=== PATIENT | male | born 1950 | race Caucasian/White ===

== ENCOUNTER → 2017-10-24 | Outpatient (CLI) | payer MEDICARE, OTHER | LOC: LAB EV 09:43 → LAB SHORT 09:43 | DX: B37.0 Candidal stomatitis (principal) | CPT/HCPCS: 87070; 87529 ==

== ENCOUNTER 2018-12-23 05:50 | Day surgery (SDC) | payer MEDICARE, BC ==
[~2018-12-23] VITALS: Ht 172.7 cm; Wt 82.0 kg
[~2018-12-23 05:50] MED LIST: SILD25T PO
--- NOTE | 2018-12-23 07:23 | NUR ---
"DAY SURGERY RN | TO OR REPORT TO STEVE SHEPPARD. BOTH DOCTORS AND SAFETY SCIENTIST HAVE SEEN. TO OR."
--- NOTE | 2018-12-23 12:14 | NUR ---
Patient up to Ambulate independently. Gait steady. Discharge instructions reviewed with patient. Patient verbalizes understanding. Copy given to patient to take home. Discharged via wheelchair to private car for ride home WITH SPOUSE
== END 2018-12-23 23:16 | disposition home or self-care (01) ==
LOC: ORSCMMR 05:50 → ORD 07:30 → ORSCMMR 23:16
PROVIDERS: Surgery
PROC: 8E0W4CZ Robotic Assisted Procedure of Trunk Region, Percutaneous Endoscopic Approach (ICD-10-PCS; principal; 2018-12-23 07:30)
PROC: 0YUA4JZ Supplement Bilateral Inguinal Region with Synthetic Substitute, Percutaneous Endoscopic Approach (ICD-10-PCS; principal; 2018-12-23 07:30)
DX: K40.20 Bilateral inguinal hernia, without obstruction or gangrene, not specified as recurrent (principal)
CPT/HCPCS: 49650; S2900; A9270-GY; C1781; J0690; J2405; J2704; J3010; J7120

== ENCOUNTER 2021-05-22 07:45 | Day surgery (SDC) | payer MEDICARE, BC ==
[~2021-05-22] VITALS: Ht 172.7 cm; Wt 87.2 kg
--- NOTE | 2021-05-22 08:59 | NUR ---
Ambulatory in Day Surgery History, Chart, Medications and Allergies reviewed before start of procedure.Patient confirms NPO status and agrees with scheduled surgery. Patient states colon prep results clear.Lungs clear T/O to Auscultation. Patient States Post-Procedure ride home has been arranged WITH
--- NOTE | 2021-05-22 09:33 | NUR ---
05/22/21 0933 Ingrid Branham History, Chart, Medications and Allergies reviewed before start of procedure. Patient confirms NPO status and agrees with scheduled surgery. 3-LEAD EKG REVIEWED WITH PHYSICIAN PRIOR TO START OF PROCEDURE. MONITOR INTACT WITH CONTINUOUS PULSE OXIMETRY AND INTERMITTENT BP. PATIENT DETERMINED TO BE ASA APPROPRIATE FOR PROPOFOL SEDATION PRIOR TO START OF PROCEDURE BY .
--- NOTE | 2021-05-22 10:43 | NUR ---
Patient up to Ambulate independently. Gait steady. Discharge instructions reviewed with patient. Patient verbalizes understanding. Copy given to patient to take home. Patient States Post-Procedure ride home has been arranged with [place]. Discharged via wheelchair to private car for ride home.
== END 2021-05-22 10:52 | disposition home or self-care (01) ==
LOC: ORSCMMR 07:45 → ORD 09:00 → ORSCMMR 10:52
PROVIDERS: Internal Medicine Gastroenterology
PROC: 0DBM8ZX Excision of Descending Colon, Via Natural or Artificial Opening Endoscopic, Diagnostic (ICD-10-PCS; principal; 2021-05-22 09:00)
PROC: 0DBN8ZX Excision of Sigmoid Colon, Via Natural or Artificial Opening Endoscopic, Diagnostic (ICD-10-PCS; principal; 2021-05-22 09:00)
DX: Z12.11 Encounter for screening for malignant neoplasm of colon (principal); Z86.010 Personal history of colon polyps; D12.4 Benign neoplasm of descending colon; K64.8 Other hemorrhoids
CPT/HCPCS: 88305; J7120

== ENCOUNTER 2024-02-16 09:07 | Day surgery (SDC) | payer MEDICARE, BC ==
[2024-02-16] VITALS (8 sets, daily range): BP systolic 111–148; BP diastolic 70–85
[~2024-02-16] VITALS: Ht 170.2 cm; Wt 82.2 kg
[~2024-02-16 09:07] MED LIST changes: +Benzocaine Oral Spray 0.5ML UD ONE; +Cleocin HCl150 MG PO; +Lactated Ringer's 1,000 ML IV SCH; +propofoL 20 ML IV ONE
--- NOTE | 2024-02-16 09:31 | NUR ---
Ambulatory in Day SurgeryPre-Op teaching done. Pt verbalizes understanding. History, Chart, Medications and Allergies reviewed before start of procedure.Patient confirms NPO status and agrees with scheduled surgery. Patient States Post-Procedure ride home has been arranged.
--- NOTE | 2024-02-16 09:56 | NUR ---
02/16/24 0956 Lesly Cedeno CONFIRMED AND REVIEWED H&P, MEDCICATIONS, ALLERGIES, MEDICAL HISTORY, RESPIRATORY HISTORY, VITAL SIGNS, 3-LEAD EKG, CONSENTS, AND PHYSICIAN ORDERS. PATIENT CONFIRMS NPO STATUS AND AGREES WITH SCHEDULED PROCEDURE. MONITOR INTACT WITH CONTINUOUS PULSE OXIMETRY, CAPNOGRAPHY, 3-LEAD EKG, INTERMITTENT BP. SUPPLEMENTAL O2 TO BE TITRATED THROUGHOUT PROCEDURE TO MAINTAIN O2 SATURATION ABOVE 90%. PATIENT DETERMINED TO BE ASA APPROPRIATE FOR PROPOFOL SEDATION PRIOR TO START OF PROCEDURE BY DR. OROZCO.
--- NOTE | 2024-02-16 09:57 | NUR ---
IV IN RIGHT THUMB
--- NOTE | 2024-02-16 10:23 | NUR ---
REPORT RECEIVED FROM BRISA SHEPPARD. VSS. PT ON RA. PT A&OX4. PT ABLE TO REPOSITION SELF IN BED. PT REQUESTING PO FLUIDS AND TOLERATING THEM WELL. PT DENIES PAIN, NAUSEA OR OTHER DISCOMFORTS.
== END 2024-02-16 10:40 | disposition home or self-care (01) ==
LOC: ORSCMMR 09:07 → ORD 10:00 → ORSCMMR 10:40
PROVIDERS: Internal Medicine Gastroenterology
PROC: 0DB98ZX Excision of Duodenum, Via Natural or Artificial Opening Endoscopic, Diagnostic (ICD-10-PCS; principal; 2024-02-16 10:00)
PROC: 0DB68ZX Excision of Stomach, Via Natural or Artificial Opening Endoscopic, Diagnostic (ICD-10-PCS; principal; 2024-02-16 10:00)
PROC: 0DB48ZX Excision of Esophagogastric Junction, Via Natural or Artificial Opening Endoscopic, Diagnostic (ICD-10-PCS; principal; 2024-02-16 10:00)
DX: D64.9 Anemia, unspecified (principal); K21.9 Gastro-esophageal reflux disease without esophagitis
CPT/HCPCS: 88305; 88312; 88342; A9270; J2704; J7120

== ENCOUNTER 2024-03-07 06:48 | Day surgery (SDC) | payer MEDICARE, BC ==
[~2024-03-07] VITALS: Ht 175.3 cm; Wt 84.7 kg
[~2024-03-07 06:48] MED LIST changes: -Benzocaine Oral Spray 0.5ML UD ONE; -Lactated Ringer's 1,000 ML IV SCH; -propofoL 20 ML IV ONE
[2024-03-07] MEDS ORDERED: Lidocaine 1%-Epineph 1:200000 30 ML SDV ONE (07:01)
[2024-03-07] MEDS ORDERED: EPINEPhrine HCl 1 MG / ML 30ML Vial ONE (07:01)
[2024-03-07] MEDS ORDERED: PRED20 PO (07:17)
[2024-03-07] MEDS ORDERED: Lactated Ringer's 1,000 ML IV ONE ×2 (07:26→09:34)
[2024-03-07] MEDS ORDERED: FentaNYL Citrate 50 MCG/ML 2 ML Injection ONE ×2 (07:28→08:34)
[2024-03-07] MEDS ORDERED: Hydrocortisone Sod Succinate 100 MG Vial ONE (07:29)
[2024-03-07] MEDS ORDERED: Etomidate 2MG / ML 10ML Vial ONE (07:29)
[2024-03-07] MEDS ORDERED: SuccINYLCHOLINE Chloride 100 MG/5 ML 5MLSYR ONE (07:31)
[2024-03-07] MEDS ORDERED: Ondansetron HCl 2 MG / ML 2ML Vial ONE (07:38)
[2024-03-07] MEDS ORDERED: Dexamethasone Sod Phos 10 MG/ML 1ML VIAL ONE (07:38)
[2024-03-07] MEDS ORDERED: Glycopyrrolate 0.2 MG/ML 5ML VIAL ONE (07:49)
[2024-03-07] MEDS ORDERED: Tranexamic Acid 100 ML IV ONE (08:28)
--- NOTE | 2024-03-07 08:33 | NUR ---
03/07/24 0833 Alyssa Barber DOES OF TXA STARTED AT 0831 BY CRNAA. CABEZAS
[2024-03-07] MEDS ORDERED: Labetalol HCL 5 MG/ML 4ML Injection (Single Dose) ONE ×2 (08:49→09:08)
[2024-03-07] MEDS ORDERED: Sugammadex Sodium 200 MG/2ML SDV (100 MG/ML) ONE (09:59)
[2024-03-07] MEDS ORDERED: ePHEDrine Sulfate 50 MG/ML 1ML Injection ONE (10:12)
--- NOTE | 2024-03-07 10:36 | NUR ---
03/07/24 1036 Susie Haines 1012: PT ARRIVES TO PACU W/ BP 46/32. RECHECK BP IS 44/35. Cornelio SOLANO CRNA, REMAINS AT BEDSIDE. 1020: Cornelio SOLANO CRNA, ADMINISTERS EPHEDRINE AT BEDSIDE. 1030: Cornelio SOLANO CRNA, REASSESSES PT AT BEDSIDE. PT'S BP HAS RESPONDED WELL TO EPHEDRINE. PT'S CURRENT BP 108/43. Cornelio SOLANO CRNA, STATES TO HAVE PT STAY IN PACU PHASE OF CARE UNTIL 1055 TO MAKE SURE PT'S BP STAYS ABOVE 95 SYSTOLIC, THEN PT CAN TRANSFER TO SDU. 1034: DR. CARRERA AT BEDSIDE TO ASSESS PT. PT RESTING QUIETLY IN CART W/O COMPLAINT. PT DENIES PAIN/NAUSEA. BP MAINTAINING ABOVE 100 SYSTOLIC. MUSTASCHE DRESSING C/D/I. NO VISIBLE SIGNS OF DISTRESS NOTED.
[2024-03-07 11:06] VITALS: BP 123/65
--- NOTE | 2024-03-07 11:10 | NUR ---
03/07/24 1110 Susie Haines PT SITTING UP IN RECLINER, TOLERATING PO LIQUIDS. PT DENIES PAIN TO NOSE, ONLY C/O SLIGHT HEADACHE. PT DENIES NAUSEA. PT'S BROUGHT BACK TO BEDSIDE. NO VISIBLE SIGNS OF DISTRESS NOTED.
== END 2024-03-07 11:42 | disposition home or self-care (01) ==
LOC: ORSCSDS 06:48
PROVIDERS: Otolaryngology
PROC: 09SL8ZZ Reposition Nasal Turbinate, Via Natural or Artificial Opening Endoscopic (ICD-10-PCS; principal; 2024-03-07 08:30)
PROC: 09DU4ZZ Extraction of Right Ethmoid Sinus, Percutaneous Endoscopic Approach (ICD-10-PCS; principal; 2024-03-07 08:30)
PROC: 09DV4ZZ Extraction of Left Ethmoid Sinus, Percutaneous Endoscopic Approach (ICD-10-PCS; principal; 2024-03-07 08:30)
PROC: 09BM0ZZ Excision of Nasal Septum, Open Approach (ICD-10-PCS; principal; 2024-03-07 08:30)
PROC: 09TL8ZZ Resection of Nasal Turbinate, Via Natural or Artificial Opening Endoscopic (ICD-10-PCS; principal; 2024-03-07 08:30)
PROC: 099R4ZZ Drainage of Left Maxillary Sinus, Percutaneous Endoscopic Approach (ICD-10-PCS; principal; 2024-03-07 08:30)
PROC: 099X4ZZ Drainage of Left Sphenoid Sinus, Percutaneous Endoscopic Approach (ICD-10-PCS; principal; 2024-03-07 08:30)
DX: J32.8 Other chronic sinusitis (principal); J34.2 Deviated nasal septum; J34.3 Hypertrophy of nasal turbinates; J34.89 Other specified disorders of nose and nasal sinuses
CPT/HCPCS: 88305; 88311; 88312; C1713; C2625; J0171; J0330; J1100; J1720; J2405; J3010

== ENCOUNTER → 2024-05-25 | Outpatient (CLI) | payer MEDICARE, BC ==
[~2024-05-25] MED LIST changes: +PRED20 PO
[2024-05-25 10:33] LABS: BASOPHILS ABSOLUTE AUTO 0.04 K/mm3 (0.00-0.23); BASOPHILS PERCENT AUTO 1 % (0-2); EOSINOPHILS ABSOLUTE AUTO 0.06 K/mm3 (0.00-0.68); EOSINOPHILS PERCENT AUTO 1 % (0-6); Hematocrit 37.5 % (37.0-53.0); Hemoglobin 12.3 g/dL (13.5-17.5); IMMATURE GRAN ABSOLUTE AUTO 0.01 K/mm3 (0.00-0.10); IMMATURE GRAN PERCENT AUTO 0 % (0-1); LYMPHOCYTES ABSOLUTE AUTO 1.32 K/mm3 (0.84-5.20); LYMPHOCYTES PERCENT AUTO 25 % (21-46); MONOCYTES ABSOLUTE AUTO 0.43 K/mm3 (0.16-1.47); MONOCYTES PERCENT AUTO 8 % (4-13); Mean Corpuscular HGB 30.6 pg (26.0-34.0); Mean Corpuscular HGB Conc 32.8 g/dL (31.5-36.5); Mean Corpuscular Volume 93 fL (80-100); Mean Platelet Volume 8.6 fL (9.1-12.4); NEUTROPHILS ABSOLUTE AUTO 3.38 K/mm3 (1.96-9.15); NEUTROPHILS PERCENT AUTO 65 % (41-73); Platelet Count 229 K/mm3 (150-400); RDW Coefficient Variation 12.5 % (11.7-14.2); RDW Standard Deviation 42.5 fL (35.1-46.3); Red Blood Cell Count 4.02 M/mm3 (4.30-5.90); White Blood Cell Count 5.24 K/mm3 (4.00-11.30)
[2024-05-25 10:46] LABS: Albumin, Blood 3.9 g/dL (3.4-5.0); Albumin/Globulin Ratio 1.2 (0.8-1.8); Bilirubin, Total 0.5 mg/dL (0.1-1.0); Bun/Creatinine Ratio 20.2 (12.0-20.0); Calcium, Blood 8.6 mg/dL (8.5-10.1); Creatinine, Blood 1.04 mg/dL (0.60-1.20); Globulin, Blood 3.3 g/dL (2.2-4.0); Potassium, Blood 4.3 mmol/L (3.5-5.5); Total Protein, Blood 7.2 g/dL (6.4-8.2)
== END | disposition home or self-care (01) ==
LOC: LAB SHORT 10:29 → LAB 10:29
PROVIDERS: Physician Assistant
DX: R10.9 Unspecified abdominal pain (principal)
CPT/HCPCS: 80053; 83690; 85025